=== PATIENT | female | born 1940 | race Caucasian/White ===

== ENCOUNTER 2017-05-06 09:35 | Emergency (ER) | payer BC ==
[~2017-05-06] VITALS: Ht 152.4 cm; Wt 48.1 kg
[2017-05-06 09:37] VITALS: Ht 152.4 cm; Wt 48.1 kg
[2017-05-06 11:12] LABS: UA SPECIFIC GRAVITY <=1.005 (1.005-1.035); microscopic required? YES; urine erythrocyte TRACE (NEGATIVE)
[2017-05-06 11:16] LABS: PLATELET COUNT 422 x10^3mcL (130-400); RED CELL DISTRIBUTION WIDTH 15.8 % (11.5-14.5)
[2017-05-06 11:18] LABS: CALCIUM 8.9 mg/dL (8.5-10.1); CARBON DIOXIDE 22.1 mmol/L (21-32); CHLORIDE SERUM 102 mmol/L (98-107); GLUCOSE SERUM 116 mg/dL (74-106); POTASSIUM SERUM 4.2 mmol/L (3.5-5.1); SODIUM SERUM 134 mmol/L (136-145)
[2017-05-06 11:23] LABS: ALKALINE PHOSPHATASE 95 U/L (46-116); ALT/SGPT 18 U/L (14-59); AST/SGOT 21 U/L (15-37)
[2017-05-06 12:50] VITALS: BP 140/90
[2017-05-06 22:27] LABS: AMPHETAMINE QUAL UR NONE DETECTED (NEG <=1000)
== END 2017-05-06 12:50 | disposition home or self-care (01) ==
LOC: ED 09:35
PROVIDERS: Emergency Medicine
DX: F03.90 Unspecified dementia, unspecified severity, without behavioral disturbance, psychotic disturbance, mood disturbance, and anxiety (principal)
CPT/HCPCS: 36415; Q0092